=== PATIENT | male | born 1950 | race Caucasian/White ===

== ENCOUNTER → 2018-04-26 | Day surgery (SDC) | payer MEDICARE ==
[~2018-04-26] VITALS: Ht 177.8 cm; Wt 99.8 kg
[~2018-04-26] MED LIST: ASPIR LOW81 MG PO; CENTRUM SILVER1 EAC3 PO; CVS OMEGA-3 KR1 EACH PO
--- NOTE | ~2018-04-26 | PROC NOTE ---
[place], [place] PROCEDURE NOTE NAME: GRIFFIN OVERTON UNIT #: [id number] ROOM: DOCTOR: MANJU MANRIQUEZ MD BIRTHDATE: [birth year] DOS: 04/26/2018 PROCEDURE: Colonoscopy. INDICATIONS: Colon cancer screening. Informed consent was obtained from the patient after the indication of procedure, the alternatives and potential complications were explained to him. PROCEDURE MEDICATION: Sedation was administered by Anesthesiology Department. Scope used was Olympus pediatric colonoscope variable stiffness GIF-180. Depth of insertion was to the cecum, which was identified by the usual landmarks, the appendiceal orifice, ileocecal valve and triangular fold, in addition to transillumination in the right lower quadrant. FINDINGS: After adequate sedation, the patient was placed in left lateral decubitus position. Rectal examination showed a normal sphincter tone and no external hemorrhoids. Scope was introduced into the rectum, then advanced to the cecum with slight difficulty due to looping in the left colon. The prep was adequate. The colon mucosa showed moderate left-sided diverticular disease. The remaining colon mucosa appeared otherwise normal with no evidence of polyps, ulcerations or obstructing lesions. Retroflexed views of the rectum showed small grade 1 internal hemorrhoids. The scope was then withdrawn after the rectum was decompressed. The patient tolerated the procedure well. IMPRESSION: 1. Moderate left-sided diverticular disease. 2. Small internal hemorrhoids. 3. Normal colon mucosa otherwise, no polyps seen. PLAN: High fiber diet, fiber supplement advised. Repeat screening colonoscopy is recommended in 10 years. Office followup will be scheduled p.r.n. MANJU MANRIQUEZ MD CM:PROCNOTE:PROCEDURE NOTE [id number] CHU MANRIQUEZ MD
[2018-04-26 08:22] VITALS: BP 125/66
[2018-04-26 08:53] VITALS: BP 109/72
[2018-04-26 09:05] VITALS: BP 125/78
[2018-04-26 09:24] VITALS: BP 118/80
== END | disposition home or self-care (01) ==
LOC: SDC 04-24 08:00
DX: Z12.11 Encounter for screening for malignant neoplasm of colon (principal); K56.2 Volvulus; K57.30 Diverticulosis of large intestine without perforation or abscess without bleeding; K64.0 First degree hemorrhoids; E78.00 Pure hypercholesterolemia, unspecified; E66.9 Obesity, unspecified; Z68.31 Body mass index [BMI] 31.0-31.9, adult; Z80.9 Family history of malignant neoplasm, unspecified
CPT/HCPCS: 00812; G0121

== ENCOUNTER → 2019-02-10 | Outpatient (CLI) | payer MEDICARE ==
[2019-02-10 09:51] LABS: BASO # 0.1 10*3/uL (0.0-0.1); BASO % 0.8 % (0.0-1.0); EOS # 0.2 10*3/uL (0.0-0.4); EOS % 3.1 % (1.0-4.0); HEMATOCRIT 43.3 % (42.0-52.0); HEMOGLOBIN 14.8 g/dl (14.0-18.0); LYMPH # 2.1 10*3/uL (1.3-4.4); LYMPH % 26.6 % (27.0-41.0); MEAN CELL VOLUME 93.5 fl (80.0-94.0); MEAN CORPUSCULAR HGB CONC 34.2 g/dl (33.0-37.0); MEAN PLATELET VOLUME 10.1 fl (9.6-12.3); MONO # 0.9 10*3/uL (0.1-1.0); MONO % 10.9 % (3.0-9.0); NEUT # 4.6 10*3/uL (2.3-7.9); NEUT % 58.3 % (47.0-73.0); PLATELET COUNT AUTOMATED 266 10*3/uL (130-400); RED BLOOD COUNT 4.63 10*6/uL (4.50-5.90); RED CELL DISTRI WIDTH 12.8 % (0-14.5); WHITE BLOOD COUNT 7.8 10*3/uL (4.8-10.8)
[2019-02-10 10:08] LABS: ALBUMIN 3.8 gm/dl (3.1-4.5); ALKALINE PHOSPHATASE 62 U/L (45-117); BUN 12 mg/dl (7-24); CHLORIDE 107 mmol/L (98-107); CHOLESTEROL 204 mg/dL (<200); HDL CHOLESTEROL 50 mg/dl (40-60); LDL CHOLESTEROL 134 mg/dL (9-159); POTASSIUM 4.5 mmol/L (3.5-5.1); SGOT/AST 18 IU/L (3-35); SGPT/ALT 32 U/L (12-78); SODIUM 140 mmol/L (136-145); TOTAL PROTEIN 7.2 gm/dL (6.4-8.2); TRIGLYCERIDES 100 mg/dl (<150); VLDL CHOLESTEROL 20 mg/dL (6-40)
== END | disposition home or self-care (01) ==
LOC: LAB 09:17
PROVIDERS: Family Medicine
DX: E78.2 Mixed hyperlipidemia (principal); R53.83 Other fatigue

== ENCOUNTER → 2022-09-27 | Outpatient (CLI) | payer MEDICARE | END | disposition home or self-care (01) | LOC: RAD 09:51 | PROVIDERS: ATTEND Nurse Practitioner Family | DX: J98.8 Other specified respiratory disorders (principal) ==